=== PATIENT | female | born 1985 | race Caucasian/White ===

== ENCOUNTER → 2016-12-05 | Outpatient (CLI) | payer OTHER | END | disposition home or self-care (01) | LOC: M LAB 14:10 | DX: Z33.1 Pregnant state, incidental (principal); Z36 Encounter for antenatal screening of mother; Z3A.00 Weeks of gestation of pregnancy not specified ==

== ENCOUNTER → 2016-12-12 | Outpatient (CLI) | payer OTHER | LOC: M LAB 12:09 | PROVIDERS: ATTEND Obstetrics & Gynecology Gynecology | DX: Z32.00 Encounter for pregnancy test, result unknown (principal) ==

== ENCOUNTER → 2017-07-14 | Outpatient (CLI) | payer OTHER ==
[2017-07-14 15:53] LABS: BASO % 0.3 % (0.0-1.0); EOS # 0.1 10^3/uL (0.0-0.50); EOS % 1.7 % (0.0-3.0); IMMATURE GRANULOCYTE % 0.3 % (0-0); LYMPH # 2.9 10^3/uL (1.5-4.5); LYMPH % 41.2 % (24.0-44.0); MEAN CORPUSCULAR HEMOGLOBIN 30.8 pg (27.0-33.0); MEAN CORPUSCULAR HGB CONC 33.6 g/dl (32.0-36.5); MEAN CORPUSCULAR VOLUME 91.6 fl (80.0-96.0); MONO # 0.4 10^3/uL (0.0-0.8); MONO % 4.9 % (0.0-5.0); NEUTROPHILS # 3.7 10^3/uL (1.8-7.7); NEUTROPHILS % 51.6 % (36.0-66.0); PLATELET COUNT, AUTOMATED 266 10^3/uL (150-450); RED CELL DISTRIBUTION WIDTH 12.4 % (11.5-14.5); WHITE BLOOD COUNT 7.1 10^3/uL (4.0-10.0)
[2017-07-14 16:49] LABS: FREE T4 0.98 NG/DL (0.76-1.46)
== END ==
LOC: M LAB 15:21
PROVIDERS: ATTEND Physician Assistant Medical
DX: R63.5 Abnormal weight gain (principal)

== ENCOUNTER → 2017-11-03 | Outpatient (CLI) | payer OTHER ==
[2017-11-03 11:49] LABS: FREE T4 0.98 NG/DL (0.76-1.46)
[2017-11-03 11:49] LABS: THYROID STIMULATING HORMONE 0.306 uIU/ML (0.358-3.740)
== END ==
LOC: M LAB 10:54
DX: R94.6 Abnormal results of thyroid function studies (principal)
CPT/HCPCS: 84443

== ENCOUNTER → 2018-02-09 | Outpatient (CLI) | payer OTHER ==
[2018-02-09 13:51] LABS: FREE T4 0.87 NG/DL (0.76-1.46); THYROID STIMULATING HORMONE 0.429 uIU/ML (0.358-3.740)
== END ==
LOC: M LAB 12:11
DX: R94.6 Abnormal results of thyroid function studies (principal)

== ENCOUNTER → 2018-06-09 | Outpatient (CLI) | payer OTHER ==
[2018-06-09 11:49] LABS: THYROID STIMULATING HORMONE 0.268 uIU/ML (0.358-3.740)
== END ==
LOC: M LAB 10:45
DX: R94.6 Abnormal results of thyroid function studies (principal)
CPT/HCPCS: 84443

== ENCOUNTER → 2018-09-03 | Outpatient (CLI) | payer OTHER ==
[2018-09-03 20:03] LABS: THYROID STIMULATING HORMONE 0.283 uIU/ML (0.358-3.740)
[2018-09-03 20:03] LABS: PROLACTIN 10.3 NG/ML; THYROID PEROXIDASE ANTIBODY 31.5 U/ML (<60.0)
[2018-09-07 00:06] LABS: THYROID STIMULATING IMMUNOGLOB <0.10 IU/L (0.00-0.55)
== END ==
LOC: M LABDRWAD 14:53
DX: R94.6 Abnormal results of thyroid function studies (principal)
CPT/HCPCS: 84146

== ENCOUNTER → 2018-12-29 | Outpatient (REF) | payer OTHER ==
[2018-12-29 20:24] LABS: FREE T3 2.6 PG/ML (2.2-4.0); FREE T4 0.96 NG/DL (0.76-1.46); THYROID STIMULATING HORMONE 0.24 uIU/ML (0.358-3.740)
== END ==
LOC: M LABDRWAD 19:24
PROVIDERS: ATTEND Nurse Practitioner Family
DX: R94.6 Abnormal results of thyroid function studies (principal)

== ENCOUNTER → 2019-07-04 | Outpatient (REF) | payer OTHER | LOC: M LABDRWAD 19:39 | PROVIDERS: ATTEND Nurse Practitioner Family | DX: R94.6 Abnormal results of thyroid function studies (principal) ==

== ENCOUNTER → 2019-08-24 | Outpatient (REF) | payer OTHER ==
[2019-08-24 18:52] LABS: FREE T3 2.5 PG/ML (2.2-4.0)
== END ==
LOC: M LAB REF 16:57
PROVIDERS: ATTEND Nurse Practitioner Adult Health
DX: E03.9 Hypothyroidism, unspecified (principal); Z79.899 Other long term (current) drug therapy

== ENCOUNTER → 2019-09-20 | Outpatient (REF) | payer OTHER | LOC: M PLALAB 15:50 | PROVIDERS: ATTEND Surgery | DX: N64.52 Nipple discharge (principal) ==

== ENCOUNTER → 2019-09-20 | Outpatient (CLI) | payer OTHER | LOC: M PLALAB 15:54 | PROVIDERS: ATTEND Surgery | DX: N64.52 Nipple discharge (principal) ==

== ENCOUNTER → 2019-12-16 | Outpatient (CLI) | payer BC ==
--- NOTE | 2019-12-16 14:17 | REP ---
TARGETED RIGHT BREAST SONOGRAPHY: Second look exam. HISTORY: Second look exam necessitated by positive screening MRI study of the breasts from October 14, 2019. Comparison mammography August 31, 2019. FINDINGS: Scanning of the right breast is performed in the 11-12 o'clock position. At the 11:30 position, there is a 8 x 7 x 7 mm angular heterogeneous hypoechoic solid lesion with internal Doppler flow. There is some associated shadowing. This is felt to correspond with the focal enhancing angular structure seen on MRI scanning. Also approximately at 11-o'clock position, there is a 7 mm isoechoic area within heterogeneously echodense parenchyma. This is not felt to be suspicious. IMPRESSION: BIRADS category 4 suspicious targeted right breast ultrasound. At the 11:30 position, there is an 8 mm angular heterogeneous hypoechoic mass which is felt to correspond to the MRI findings. Ultrasound guided needle biopsy recommended. Electronically Signed by Yifan Herrera MD 12/16/2019 02:54 P
== END ==
LOC: M RAD 13:05
PROVIDERS: ATTEND Surgery
DX: R92.8 Other abnormal and inconclusive findings on diagnostic imaging of breast (principal)

== ENCOUNTER → 2019-12-20 | Outpatient (CLI) | payer BC ==
[~2019-12-20] MED LIST: LIDOCAINE 1% MDV 20ML VIAL As Ordered ONE; SODIUM BICARBONATE 8.4% INJ 50MEQ 50 ML VIAL As Ordered ONE
[2019-12-20 12:31] VITALS: BP 131/86
--- NOTE | 2019-12-20 13:10 | REP ---
Digital diagnostic unilateral right breast mammography with CAD: Two views. History: Marker clip placement views. The patient is status post ultrasound-guided needle biopsy of a nodule at 11:30 o'clock. This corresponds to MRI findings from October 14, 2019. Comparison mammography August 31, 2019. Findings: CC and true mediolateral views of the right breast demonstrate a needle biopsy marker clip in approximately the 11 o'clock position in the right breast. There is no evidence of a hematoma. Impression: Marker clip seen in place. Electronically Signed by Yifan Herrera MD 12/20/2019 05:58 P
--- NOTE | 2019-12-20 15:44 | REP ---
Focused right breast sonography: History: Right breast mass. Ultrasound guidance. Needle biopsy procedure. Findings: Sonographic guidance is provided to Dr. Shipley, she performed ultrasound-guided needle biopsy procedure. Electronically Signed by Yifan Herrera MD 12/20/2019 03:35 P
--- NOTE | 2019-12-20 17:59 | ROOPDOC ---
[facility] Report Of Operation Report of Operation DATE OF PROCEDURE: 12/20/19 PREPROCEDURE DIAGNOSES: Right breast mass and right nipple discharge POSTPROCEDURE DIAGNOSES: Right breast mass and right nipple discharge PROCEDURE: Ultrasound-guided right breast mass attempted aspiration and right breast mass biopsy with clip placement SURGEON: Jose Sullivan OTR OWNER OPERATOR TRUCK DRIVER: ANESTHESIA: Local ESTIMATED BLOOD LOSS: Approximately 1 mL. COMPLICATIONS: None REMARKS: Clip is visible on mammogram in expected location DESCRIPTION OF PROCEDURE: Lidocaine 1% LOT [id number] Expiration November 2020 Sodium Bicarbonate 8.4% LOT [id number] Expiration December 2020 Hydromark clip LOT [id number] Expiration 08/2022 REF: [id number] Bx device: BARD [id number] x10 cm LOT [id number] Expiration 07/2022 Informed consent was obtained. The most common risk and possible complications including bleeding, hematoma, bruising, infection, injury to surrounding structures were explained to the patient and she expressed understanding. Patient was taken to the procedure room and placed on the bed in the supine position with the right upper extremity placed above the head. Appropriate time out was done stating patients name, date of , and the procedure to be performed. The right breast was prepped and draped in the usual fashion. The ultrasound was used to confirm the location of the lesion in the right breast at 11:00 about two centimeters from the nipple. Plain Lidocaine 1% and 8.4% sodium bicarbonate 10:1 mix was used to numb the skin, the biopsy site and tissues along the anticipated biopsy tract. Procedure was started with the attempt of aspiration of the lesion. 18G needle was used to aspirate the lesion, however there was no return of any fluid. Decision was made to proceed with a biopsy. A small skin incision was made with blade number 11. BARD Marquee 14G cannula with introducer ([id number]) was inserted through the incision and advanced under the ultrasound guidance to position immediately adjacent to the lesion. Next, the introducer was removed and BARD Marquee 14G biopsy device was places in the cannula. Pre-biopsy imaging, and post-biopsy imaging were captured. Five good core biopsies were taken at various levels of the lesion. Specimen was placed in formaldehyde, labeled with appropriate biopsy site and patients name, and sent to pathology for evaluation. Next, the biopsy device was withdrawn and a clip introducer was inserted into the biopsy site via the cannula. The Hydromark clip was deployed under direct vision. Post-clip placement image was captured. Manual pressure over the biopsy cavity and tract was held after the clip introducer was withdrawn. No bleeding was noted upon removal of the pressure. Post-biopsy mammogram of the right breast was obtained and showed clip in expected position. Postprocedural dressing was placed. Patient tolerated procedure well. Discharge instructions were discussed with the patient and she expressed understanding. JOSE SULLIVAN DO Dec 20, 2019 17:59
== END ==
LOC: M IRPRO 11:13
PROVIDERS: ATTEND Surgery
DX: N63.10 Unspecified lump in the right breast, unspecified quadrant (principal)

== ENCOUNTER 2020-01-04 09:05 | Day surgery (SDC) | payer BC ==
--- NOTE | 2020-01-03 07:37 | CR ---
DATE OF CONSULTATION: 01/02/2020 CONSULTATION REPORT FOR: Dr. Shipley Dear Dr. Shipley: Thank you for asking me to see Ms. Jack Olsen in consultation prior to her right breast papilloma resection. As you know Ms. Olsen is a 34-year-old female with a past medical history of anxiety, subclinical hypothyroid, nephrolithiasis who reports that she has been in her usual state of good health, denying any fevers or chills, chest pain or shortness of breath. The patient is , has three children, and one exchange student. She reports anxiety overall is improved and she has been able to wean off of sertraline without complication. The patient reports a remote history of nephrolithiasis requiring lithotripsy and stenting with no residual hematuria or flank pain. The patient has followup with endocrine for hypothyroidism that appears to be subclinical and is just being monitored. The patient has regular menses. She is up-to-date with her Pap. She has had a history of colposcopies. The patient does note she has occasional malodorous vaginal discharge, brief in nature and cyclical. The patient is active. She denies any fevers or chills, chest pain or shortness of breath, nausea, vomiting, or change in bowels. PAST MEDICAL HISTORY: 1. Nephrolithiasis in approximately 2009 requiring lithotripsy and stent. 2. Abnormal Pap with a history of colposcopies in her 20s. 3. (G) 3, para (P) 3. 4. Subclinical hypothyroid. 5. Anemia. MEDICATIONS: None. ALLERGIES: None. SOCIAL HISTORY: , three teenage children, works at [employer], drinks socially, never smoked. FAMILY HISTORY: Maternal grandmother had Alzheimer's. Maternal grandfather hip fracture. A half-sister who has a skin cancer. PHYSICAL EXAMINATION: Overweight female, in no acute distress. Vital signs are weight 167 with a body mass index (BMI) of 27, blood pressure 108/62 with an oxygen saturation of 98%. HEENT: Head is normocephalic. Neck is supple. Pupils equal and reactive to light. Extraocular movements are intact. Normal oropharynx. No thyromegaly, jugular venous distention (JVD), or carotid bruits. RESPIRATORY: Clear to auscultation, resonant to percussion. CARDIOVASCULAR: Regular rate and rhythm. No murmur, rub, gallop. ABDOMEN: Obese, soft, nontender. BREASTS: Mild diffuse fibroglandular breast disease with a 1 cm mobile cystic mass, approximately 11:30 areola with some associated bruising from recent biopsy as well as a thickened area at approximately 2:00 o'clock, right areola. Left breast: Mild diffuse fibroglandular breast disease. ABDOMEN: Obese, soft, nontender. EXTREMITIES: No edema. LABORATORY DATA: EKG from 01/02/2020: Normal sinus rhythm, rate of 78, axis of 64, normal GA, QRS, QTC, normal R wave progression, no atrial or ventricle hypertrophy. No pathologic Q waves. Blood work 01/02/2020: Normal CBC, metabolic profile, liver, thyroid. Pap 12/13/2019 does show a shift in howie suggestive of bacterial vaginosis. IMPRESSION: Ms. Jack Olsen, a 34-year-old female with no cardiovascular risk factors is optimized and felt to be at low risk for cardiovascular complications from the proposed surgical intervention which can be further minimized by the following. 1. Hypothyroid. Laboratories drawn today. She sees endocrine tomorrow. 2. Nephrolithiasis. No recurrence. Encourage aggressive fluid hydration. 3. Anxiety, controlled without pharmacologic therapy. Support offered. 4. Breast papilloma, per Dr. Shipley. 5. Possible vaginitis, intermittent in nature, not present now. The patient will represent if she is concerned for consideration of formal cultures. Thank you very much for this consultation. Please call with questions or concerns.
[~2020-01-04] VITALS: Ht 167.6 cm; Wt 78.0 kg
[~2020-01-04 09:05] MED LIST changes: +HEPARIN SOD (PORCINE) 5000 UNITS/ML VIAL (J1644 PER 1000UNITS) SQ ONE; -LIDOCAINE 1% MDV 20ML VIAL As Ordered ONE; +LR 1,000 ML IV ONE; -SODIUM BICARBONATE 8.4% INJ 50MEQ 50 ML VIAL As Ordered ONE; +ceFAZolin SOD 2 GM in IV 1 EA IV ONE
[2020-01-04] MEDS ORDERED: LIDOCAINE 1% SDV INJ 30 ML VIAL As Ordered ONE (12:06)
[2020-01-04] MEDS ORDERED: BUPIVACAINE HCL 0.25% 30 ML VIAL As Ordered ONE (12:07)
[2020-01-04] MEDS ORDERED: MIDAZOLAM INJ 2 MG/2 ML VIAL (J2250) As Ordered ONE (12:39)
[2020-01-04] MEDS ORDERED: KETOROLAC 60 MG/2 ML VIAL (J1885) As Ordered ONE (12:39)
[2020-01-04] MEDS ORDERED: ONDANSETRON 4MG/2ML VIAL (J2405) As Ordered ONE ×2 (12:39→14:15)
[2020-01-04] MEDS ORDERED: LIDOCAINE 2% INJ 100 MG/5 ML SDV (FOR ANES.) As Ordered ONE (12:39)
[2020-01-04] MEDS ORDERED: propofoL 200 MG/20 ML VIAL As Ordered ONE (12:39)
[2020-01-04] MEDS ORDERED: dexameTHASONE 4 MG/ML 1ML VIAL (J1100) As Ordered ONE (12:39)
[2020-01-04] MEDS ORDERED: fentaNYL 100 MCG/2 ML INJECTION (J3010) As Ordered ONE (12:39)
[2020-01-04] MEDS ORDERED: ACETAMINOPHEN 1000MG 100ML IV BTL (OFIRMEV) (J0131 PER 10MG) As Ordered ONE (13:05)
[2020-01-04] MEDS ORDERED: PHENYLephrine HCL 500 MCG/5 ML (100MCG/ML) SYRINGE (J2370) As Ordered ONE (13:22)
[2020-01-04] MEDS ORDERED: ULTR50TA8 PO (14:16)
[2020-01-04] MEDS ORDERED: oxyCODONE 5MG TAB As Ordered ONE (14:16)
--- NOTE | 2020-01-04 14:23 | REP ---
Right breast sonography: History: Papilloma right breast. Needle localization. Findings: Sonographic guidance is provided to Dr. Shipley who performed ultrasound-guided needle localization procedure. Electronically Signed by Yifan Herrera MD 01/04/2020 02:15 P
[2020-01-04] MEDS ORDERED: ONDANSETRON 4MG/2ML VIAL (J2405) IV PRN (14:30)
[2020-01-04] MEDS ORDERED: fentaNYL 100 MCG/2 ML INJECTION (J3010) IV PRN (14:30)
[2020-01-04] MEDS ORDERED: LR 1,000 ML IV SCH (14:30)
[2020-01-04] MEDS ORDERED: HYDROMORPHONE HCL 0.5 MG/ 0.5 ML SYRINGE (J1170 PER 1) IV PRN (14:30)
[2020-01-04] MEDS ORDERED: oxyCODONE 5MG TAB PO PRN (14:30)
[2020-01-04 15:26] VITALS: BP 131/83
--- NOTE | 2020-01-04 15:31 | REP ---
SPECIMEN RADIOGRAPH: A specimen radiograph is performed following right breast lumpectomy. Reportedly the previous ultrasound guided biopsy showed a papilloma at the 12 o'clock position of the right breast. The marking clip is seen at the peripheral aspect of the specimen. There is an adjacent localizing wire. Electronically Signed by Jaime Shahid MD 01/04/2020 03:55 P
--- NOTE | 2020-01-06 11:36 | ROOPDOC ---
[facility] Report Of Operation Report of Operation DATE OF PROCEDURE: 01/04/20 PREPROCEDURE DIAGNOSES: Right intraductal papilloma and right nipple discharge. POSTPROCEDURE DIAGNOSES: Right intraductal papilloma and right nipple discharge. PROCEDURE: Right breast excisional biopsy was Intra-Op guide wire placement. SURGEON: Jose Sullivan CONGRESSIONAL ASSISTANT: ANESTHESIA: General ESTIMATED BLOOD LOSS: Approximately 5 mL. COMPLICATIONS: None. REMARKS: Wire is seen centrally placed in the right excisional biopsy specimen. Hydromark clip was placed on the top of the specimen and is seen on the radiogr aphy which assures successful retrieval of the clip. DESCRIPTION OF PROCEDURE: INDICATIONS: Ms. Olsen is a 34 year-old woman who initially presented to the clinic with right nipple discharge. Diagnostic mammography and US were negative. MRI of the breast showed suspicious lesion in retroareolar region superiorly. This was evaluated with second look US and sonographic correlate was found. US guided biopsy of the right breast retroareolar lesion came back as intraductal papilloma. It was explained to the patient that this is benign pathology results however it can be associated with carcinoma. She opted for excisional biopsy of the right breast. She was medically cleared for surgery by her primary care doctor. Risks and possible complications of surgical procedure including bleeding, infection and injury to surrounding structures were explained to the patient and she wished to proceed. Consent was signed. My initials were placed on the operative site. Subcutaneous injection of 5000 units of heparin was done in Preop. DETAILS: Patient was taken to the operating room and placed on the operating room table. A sign in was called stating patients name, date of and the procedure to be done. Preoperative antibiotics were infused. Smooth induction of general anesthesia was done. Patients hands were extended on arm rests. Care was taken not to over extend the arms. Procedure was started with right breast intraop wire localization. Appropriate time out was done and patients name, date of , and the procedure to be done were confirmed. Right breast was cleaned by me. Intraoperative ultrasound was used again to confirm location of the Hydromark clip. Location of the clip was marked on the skin as well. 21 G Kopans Breast Lesion Localization Needle was used to place 25 cm wire through the lesion. The wire was placed through the clip and the end of the wire was passed a centimeter deep. The images were captured confirming adequate placement of the localizing wire. Metal Moulder'S Assistant assisted with the wire placement. Next, patients right breast and axilla were prepped and draped in the usual fashion. Care was taken not to displace the wire. Appropriate time out was done again prior second part of the procedure. Patients name, date of , and the procedure to be done were confirmed. Next, local anesthetic using 1% lidocaine and 0.25 % Marcaine 50/50 mix was injected at the site of planned pariareolar incision. The incision was made with the scalpel. Subcutaneous skin flaps were raised and the guide wire was carefully pulled into the wound. Dissection was carries along the wire until the previously marked on the skin area of target lesion location was encountered. At this point, wider excision of the tissue surrounding the wire was done. The Hydromark clip was identified in the tissue with intraoperative hockey stick ultrasound probe. The end of the wire was identified with palpation. During dissection the Hydromark clip was noted superficial and protruding through the tissues. The hydromark clip was removed at this point to avoid misplacing it during the manipulation of the tissues. The site of the clip was marked with a silk stitch. The excisional biopsy specimen was carefully removed from the breast keeping its proper orientation and moved to the back table where margins were marked with the surgical inking kit following the standard colors recommendations. Specimen was then placed on the grid and placed in [employer] Specimen Imaging System. Hydromark clip was placed on the to of specimen at the marking stitch site. The image revealed the wire centrally placed. It also showed that the Hydromark clip was retrieved successfully. The specimen was labeled with patients name and *right excisional biopsy and sent to pathology. Next, the wound was irrigated thoroughly and adequate hemostasis was assured. Additional local anesthetic was injected into surrounding tissues. space was approximated with 3-0 Vicryl. The dermis was closed with 3-0 Monocryl and skin was closed with 4-0 Monocryl. Surgical glue was placed over the incision. Patient emerged from the anesthesia without any problems. Fluffs were placed over the operative site and patients chest was wrapped snuggly in the KIKE wrap. Sponge and instrument counts were done and were correct. Patient tolerated procedure well and was taken to recovery unit in stable condition. JOSE SULLIVAN DO Jan 04, 2020 21:39
== END 2020-01-04 15:40 | disposition home or self-care (01) ==
LOC: M SDC 09:05
PROVIDERS: ATTEND Surgery
DX: D24.1 Benign neoplasm of right breast (principal)
CPT/HCPCS: 19125; 36415; 76098; 76942; 81025; 86850; 86900; 86901; 88305; J0131; J0690; J1100; J1644; J1885; J2250; J2370; J2405; J3010

== ENCOUNTER → 2023-12-28 | Outpatient (REF) | payer BC ==
[~2023-12-28] MED LIST changes: -HEPARIN SOD (PORCINE) 5000 UNITS/ML VIAL (J1644 PER 1000UNITS) SQ ONE; -LR 1,000 ML IV ONE; +ULTR50TA8 PO; -ceFAZolin SOD 2 GM in IV 1 EA IV ONE
== END ==
LOC: M LAB REF 13:56
PROVIDERS: ATTEND Nurse Practitioner Adult Health
DX: F10.10 Alcohol abuse, uncomplicated (principal)